=== PATIENT | female | born 1990 | race Caucasian/White ===

== ENCOUNTER 2016-12-31 16:11 | Emergency (ER) | payer MEDICAID ==
[2016-12-31] MEDS ORDERED: ALBUTEROL SULFATE 0.083% NEB 2.5 MG/3 ML AMPUL NEB ONE (17:01)
[2016-12-31] MEDS ORDERED: IBUPROFEN 600 MG TABLET PO ONE (17:03)
--- NOTE | 2016-12-31 17:06 | ER Document Report ---
HPI - HPI Patient complains to provider of: midline to right chest pain Onset: Other - 9:30 this morning Onset/Duration: Sudden Pain Level: 3 Context: 26-year-old smoker who has had a cough for 2 weeks but worse for the past 5 days was [address] her way to work this morning and had sudden onset of retrosternal midline to right-sided chest pain. Movement, deep breath, and cough make it worse. Not coughing makes it better. No fever or chills. No nausea vomiting or diarrhea. She takes the depot shots. No history of cancer, travel, sedentary lifestyle. History of asthma Associated Symptoms: None Exacerbated by: Movement, Coughing, Deep breathing Relieved by: Other - Not coughing Similar symptoms previously: No Recently seen / treated by doctor: No - ROS ROS below otherwise negative: Yes Systems Reviewed and Negative: Yes All other systems reviewed and negative - DERM Skin Color: Normal Past Medical History - General Information source: Patient - Social History Smoking Status: Current Every Day Smoker Frequency of alcohol use: None Drug Abuse: None Lives with: Family Family History: Reviewed & Not Pertinent Patient has suicidal ideation: No Patient has homicidal ideation: No Pulmonary Medical History: Reports: Hx Asthma Renal/ Medical History: Denies: Hx Peritoneal Dialysis Surgical Hx: Negative - Immunizations Immunizations up to date: Yes Hx Diphtheria, Pertussis, Tetanus Vaccination: Yes Vertical Provider Document - CONSTITUTIONAL Agree With Documented VS: Yes Exam Limitations: No Limitations - INFECTION CONTROL TRAVEL OUTSIDE OF THE [place] IN LAST 30 DAYS: No - HEENT HEENT: Normocephalic. negative: Conjuctival Injection, Pharyngeal Erythema, Tympanic Membrane Red - NECK Neck: Supple. negative: Lymphadenopathy-Left, Lymphadenopathy-Right - RESPIRATORY Respiratory: No Respiratory Distress. negative: Chest Non-Tender, Rales, Rhonchi, Wheezing O2 Sat by Pulse Oximetry: 96 Notes: noisy inhalation, very point tender sternum and right chest wall, 3-4-5 - CARDIOVASCULAR Cardiovascular: Regular Rate, Regular Rhythm - GI/ABDOMEN Gastrointestinal: Abdomen Soft, Abdomen Non-Tender, No Organomegaly - MUSCULOSKELETAL/EXTREMETIES Musculoskeletal/Extremeties: MARCELINO NUÑEZ - NEURO Level of Consciousness: Awake, Alert, Appropriate Motor/Sensory: No Motor Deficit, No Sensory Deficit - DERM Integumentary: Warm, Dry, No Rash Course - Re-evaluation Re-evalutation: 12/31/16 17:32 EKG normal sinus rhythm 12/31/16 18:01 chest xray is negative. nebulizer made her cough more, lungs still clear. consult dr. monge, OK to go home. - Vital Signs Vital signs: Temp Pulse Resp BP Pulse Ox 97.6 F 87 20 116/73 96 12/31/16 16:18 12/31/16 16:18 12/31/16 16:18 12/31/16 16:18 12/31/16 16:18 Discharge - Discharge Clinical Impression: Chest wall pain, Bronchitis Condition: Good Disposition: HOME, SELF-CARE Instructions: Chest Wall Pain ([facility]), Bronchitis ([facility]) Additional Instructions: warm compress stop smoking to er if worse Please complete the patient satisfaction survey if you get one, and return it.. If you do not receive a survey, then you can go to the [facility] website, [email or web address] and place your comments about your very good care. Thank you very much. It was a pleasure being your medical provider today. Prescriptions: Albuterol Sulfate [Proair HFA Inhalation Aerosol 8.5 gm MDI] 2 puff IH Q3HP PRN #1 [email or web address] PRN Reason: Ibuprofen [Motrin 600 mg Tablet] 600 mg PO Q8HP PRN #30 tablet PRN Reason:
[2016-12-31 18:29] VITALS: BP 122/59
--- NOTE | 2017-01-01 10:46 | EKG REPORT ---
SEVERITY:- NORMAL ECG - SINUS RHYTHM : Confirmed by: Ashley Witt 01-Jan-2017 10:46:17
== END 2016-12-31 18:32 | disposition home or self-care (01) ==
LOC: ER 16:11
DX: J40 Bronchitis, not specified as acute or chronic (principal); R07.89 Other chest pain; R05 Cough; F17.200 Nicotine dependence, unspecified, uncomplicated
CPT/HCPCS: 93005; 94640; 99283; 71020; 93010; J3490

== ENCOUNTER 2019-08-04 19:00 | Emergency (ER) | payer MEDICAID ==
[2019-08-04] MEDS ORDERED: KETOROLAC TROMETHAMINE INJ/PF 30 MG/1 ML SDV IV ONE (20:02)
--- NOTE | 2019-08-04 20:04 | ER Document Report ---
ED Medical Screen (RME) - General Chief Complaint: Abdominal Pain Stated Complaint: RIGHT SIDE PAIN Time Seen by Provider: 08/04/19 19:58 Mode of Arrival: Ambulatory Information source: Patient Notes: Patient presents complaining of right-sided pain that started this afternoon. Patient states pain will occasionally radiate to the right flank area. Patient denies any nausea vomiting diarrhea or urinary symptoms. Patient denies any concerns about . I have greeted and performed a rapid initial assessment of this patient. A comprehensive ED assessment and evaluation of the patient, analysis of test results and completion of the medical decision making process will be conducted by additional ED providers. TRAVEL OUTSIDE OF THE [place] IN LAST 30 DAYS: No - Related Data Allergies/Adverse Reactions: amoxicillin [Amoxicillin] Allergy (Verified 08/04/19 19:55) Home Medications: Concerta. Zoloft Past Medical History - Social History Frequency of alcohol use: None Drug Abuse: None Pulmonary Medical History: Reports: Hx Asthma Renal/ Medical History: Denies: Hx Peritoneal Dialysis - Immunizations Immunizations up to date: Yes Hx Diphtheria, Pertussis, Tetanus Vaccination: Yes Physical Exam - Vital signs Vitals: Temp Pulse Resp BP Pulse Ox 98.0 F 76 18 116/67 96 08/04/19 19:23 08/04/19 19:23 08/04/19 19:23 08/04/19 19:23 08/04/19 19:23 - Abdominal Tenderness: Tender - Right lower quadrant Course - Vital Signs Vital signs: Temp Pulse Resp BP Pulse Ox 98.0 F 76 18 116/67 96 08/04/19 19:23 08/04/19 19:23 08/04/19 19:23 08/04/19 19:23 08/04/19 19:23
[2019-08-04 20:20] LABS: ABSOLUTE EOSINOPHILS # (AUTO) 0.1 10^3/uL (0.0-0.6); ABSOLUTE LYMPHOCYTES (AUTO) 2.2 10^3/uL (0.5-4.7); ABSOLUTE MONOCYTES (AUTO) 0.4 10^3/uL (0.1-1.4); ABSOLUTE NEUT (AUTO) 4.1 10^3/uL (1.7-8.2); BASOPHILS % (AUTO) 0.6 % (0-2); EOSINOPHILS % (AUTO) 1.4 % (0-6); HEMATOCRIT 43.3 % (36.0-47.0); HEMOGLOBIN 14.9 g/dL (12.0-15.5); LYMPHOCYTES % (AUTO) 32.4 % (13-45); MEAN CORPUSCULAR HEMOGLOBIN 30.7 pg (27.0-33.4); MEAN CORPUSCULAR HGB CONC 34.4 g/dL (32.0-36.0); MEAN CORPUSCULAR VOLUME 89 fl (80-97); MONOCYTES % (AUTO) 5.8 % (3-13); PLATELET COUNT 184 10^3/uL (150-450); RED BLOOD COUNT 4.84 10^6/uL (3.72-5.28); RED CELL DISTRIBUTION WIDTH 13.2 % (11.5-14.0); SEGMENTED NEUTROPHILS % (AUTO) 59.8 % (42-78); TOTAL CELLS COUNTED % (AUTO) 100 %; WHITE BLOOD COUNT 6.8 10^3/uL (4.0-10.5)
[2019-08-04 20:44] LABS: ALBUMIN 4.9 g/dL (3.5-5.0); ALKALINE PHOSPHATASE 57 U/L (38-126); ANION GAP 11 (5-19); ASPARTATE AMINO TRANSFERASE 21 U/L (14-36); BILIRUBIN,DIRECT 0.1 mg/dL (0.0-0.4); BILIRUBIN,TOTAL 0.6 mg/dL (0.2-1.3); BLOOD UREA NITROGEN 8 mg/dL (7-20); CALCIUM 10.3 mg/dL (8.4-10.2); CARBON DIOXIDE 25 mmol/L (22-30); CHLORIDE 106 mmol/L (98-107); GLUCOSE 87 mg/dL (75-110); POTASSIUM 4.2 mmol/L (3.6-5.0); TOTAL PROTEIN 7.9 g/dL (6.3-8.2)
--- NOTE | 2019-08-04 21:53 | ER Document Report ---
ED General - General Chief Complaint: Abdominal Pain Stated Complaint: RIGHT SIDE PAIN Time Seen by Provider: 08/04/19 19:58 Mode of Arrival: Ambulatory Notes: 29-year-old female presents emergency department complaining of a sudden onset of sharp stabbing pain on the right side of her abdomen around 330 this afternoo n. States that sometimes it radiates to her back, relieved with laying down and worsens when she is standing up or walking around. Patient states the only similar pain she has had has been when she has been working out but she has an exercise recently. Denies any history of kidney stone, ovarian cyst or ovarian torsion. Denies nausea, vomiting, diarrhea, admits chills. Denies dysuria or vaginal discharge, denies vaginal bleeding. TRAVEL OUTSIDE OF THE [place] IN LAST 30 DAYS: No - Related Data Allergies/Adverse Reactions: amoxicillin [Amoxicillin] Allergy (Verified 08/04/19 19:55) Home Medications: Concerta. Zoloft Past Medical History - General Information source: Patient - Social History Smoking Status: Current Every Day Smoker Frequency of alcohol use: Social Drug Abuse: None Family History: Reviewed & Not Pertinent Patient has suicidal ideation: No Patient has homicidal ideation: No Pulmonary Medical History: Reports: Hx Asthma Renal/ Medical History: Denies: Hx Peritoneal Dialysis - Immunizations Immunizations up to date: Yes Hx Diphtheria, Pertussis, Tetanus Vaccination: Yes Review of Systems - Review of Systems Constitutional: See HPI, Chills Gastrointestinal: See HPI -: Yes All other systems reviewed and negative Physical Exam - Vital signs Vitals: Temp Pulse Resp BP Pulse Ox 98.0 F 76 18 116/67 96 08/04/19 19:23 08/04/19 19:23 08/04/19 19:23 08/04/19 19:23 08/04/19 19:23 Interpretation: Normal - Notes Notes: GENERAL: Alert, interacts well. No acute distress. HEAD: Normocephalic, atraumatic EYES: Pupils equal, round and reactive to light, extraocular movements intact. ENT: Oral mucosa moist, tongue midline. NECK: Full range of motion, supple, trachea midline. LUNGS: Clear to auscultation bilaterally, no wheezes, rales or rhonchi, no respi ratory distress. HEART: Regular rate and rhythm, no murmurs, gallops, rubs. ABDOMEN: Soft, minimal right lateral abdominal pain, no right lower or right upper quadrant tenderness to palpation, nondistended, bowel sounds present in all 4 quadrants. EXTREMITIES: Moves all 4 extremities spontaneously, no edema, radial and dorsalis pedis pulses 2/4 bilaterally. No cyanosis. NEUROLOGICAL: Alert and oriented x3, normal speech. PSYCH: Normal mood, normal affect. SKIN: Warm, Dry, normal turgor, no rashes or lesions noted. Course - Re-evaluation Re-evalutation: 08/05/19 03:14 CBC unremarkable, CMP grossly unremarkable, test negative, urinalysis unremarkable, transvaginal ultrasound shows a 1.2 cm simple cyst of the right ovary, good venous blood flow, technique limits visualization of arterial blood flow but there is no signs of enlargement and the patient's pain is completely resolved. Doubt ovarian torsion at this time. After Toradol the patient's pain is completely resolved, discussed with patient that I cannot give her an exact explanation for why she was having this pain but it is reassuring that it is gone. Appendicitis is very low on my differential considering the normal white blood cell count and the resolution of the pain with minimal intervention. Patient will return for fevers, vomiting, blood in her stool or worsening abdominal pain. - Vital Signs Vital signs: Temp Pulse Resp BP Pulse Ox 98.1 F 75 16 103/52 L 95 08/05/19 00:29 08/05/19 00:29 08/05/19 00:29 08/05/19 00:29 08/05/19 00:29 - Laboratory Result Diagrams: 08/04/19 20:10 08/04/19 20:10 Laboratory results interpreted by me: 08/04/19 20:10 Calcium 10.3 H Discharge - Discharge Clinical Impression: Right ovarian cyst, Right lower quadrant abdominal pain Condition: Stable Disposition: HOME, SELF-CARE Additional Instructions: Abdominal Pain There are many causes of abdominal pain. Pain can mean a serious problem requiring surgery (such as appendicitis). It can also be an innocent problem that goes away on its own (such as a viral infection). Often, time must pass to determine the cause of pain. The physician does not feel that hospitalization is necessary, at present. Things may change within the next 24 hours. Call the doctor or come back for re- examination if any problems occur, such as: (1) Pain that becomes more severe, steady, or becomes concentrated in one specific area. Also, pain that is more severe with movement or coughing. (2) Vomiting that persists or becomes more frequent. (3) Blood in the vomitus, urine, or bowel movements. Blood in the stool may have a tarry or black appearance. (4) Shaking chills or fever greater than 100 degrees F. (5) The abdomen becomes more distended or swollen. (6) Bowel movements cease. (7) Failure to improve as expected. Today we found a simple cyst on your right ovary. This is unlikely to cause your pain however if you had another cyst and it ruptured that could have caused the pain and we would have no evidence for this. This is a simple cyst and does not need follow-up with your [facility].
--- NOTE | 2019-08-04 22:10 | RADIOLOGY REPORT (SQ) ---
EXAM DESCRIPTION: US PELVIS TRANSVAGINAL COMPLETED DATE/TME: 08/04/2019 20:03 CLINICAL HISTORY: 29 years, Female, RLQ pain COMPARISON: None. TECHNIQUE: Emergent pelvic ultrasound LIMITATIONS: None. FINDINGS: The uterus measures 7.7 cm in length. The right ovary measures 2.6 x 2.3 x 1.8 cm. The left ovary is not well seen due to overlying bowel gas. Doppler and spectral analysis shows venous flow to the right ovary. The application internship was unsuccessful at obtaining arterial flow to the right ovary. The myometrium is homogenous. The endometrium measures 5 mm in thickness. Simple appearing 1.2 cm cyst/follicle of the right ovary. No solid adnexal mass. No free fluid IMPRESSION: Simple appearing 1.2 cm cyst/follicle of the right ovary which does not require follow-up. Nonvisualization of the left ovary. Suboptimal demonstration of arterial flow to the right ovary, likely technical in nature. Venous flow of the right ovary was demonstrated. copyright 2010 [employer]- All Rights Reserved
[2019-08-04] MEDS ORDERED: KETOROLAC TROMETHAMINE INJ/PF 30 MG/1 ML SDV ONE (22:34)
[2019-08-04] MEDS ORDERED: KETOROLAC TROMETHAMINE INJ/PF 30 MG/1 ML SDV IM ONE (22:38)
[2019-08-05 00:27] LABS: APPEARANCE,URINE CLEAR; BILIRUBIN,URINE NEGATIVE (NEGATIVE); COLOR,URINE STRAW; GLUCOSE, URINE NEGATIVE (NEGATIVE); KETONES,URINE NEGATIVE (NEGATIVE); PROTEIN,URINE NEGATIVE (NEGATIVE); URINE SPECIFIC GRAVITY 1.005; UROBILINOGEN,URINE NEGATIVE mg/dL (<2.0)
[2019-08-05 03:29] VITALS: BP 94/50
== END 2019-08-05 03:33 | disposition home or self-care (01) ==
LOC: ER 19:00
DX: N83.201 Unspecified ovarian cyst, right side (principal); R10.31 Right lower quadrant pain; R68.83 Chills (without fever); F17.200 Nicotine dependence, unspecified, uncomplicated; J45.909 Unspecified asthma, uncomplicated; Z79.899 Other long term (current) drug therapy; Z88.0 Allergy status to penicillin
CPT/HCPCS: 99284; 96374; 36415; 84703; 85025; 80053; 81001; 76830; 93976; J1885